=== PATIENT | male | born 1990 | race Caucasian/White ===

== ENCOUNTER 2023-08-11 13:18 | Emergency (ER) | payer BC, SELFPAY ==
--- NOTE | ~2023-08-11 | XR_ITS ---
EXAMINATION: XR shoulder LT min 2V DATE: 08/11/2023 13:36 INDICATION: Left shoulder pain. TECHNIQUE: 5 views of left shoulder were obtained. COMPARISON: None. FINDINGS: Bone alignment is normal. No fracture. There is severe osteoarthritis of glenohumeral joint and mild osteoarthritis of acromioclavicular joint. IMPRESSION: 1. Severe osteoarthritis of glenohumeral joint. Reviewed, dictated and finalized at location A.
[2023-08-11 13:18] VITALS: BP 159/105; PULSE 90; RESP 20; TEMP 36.9; O2SAT 99
[2023-08-11] MEDS: KETOROLAC (*BKC) 60 MG/2 ML VIAL IM (13:37)
--- NOTE | 2023-08-11 14:01 | ED.UPPEXIN ---
HPI - Extremity Injury (Upper) General Chief Complaint: Extremity Injury, Upper Stated Complaint: left shoulder pain Time Seen by Provider: 08/11/23 13:20 Source: patient Mode of arrival: ambulatory Limitations: no limitations History of Present Illness HPI narrative: patient presents with left shoulder pain has had rotator cuff surgery when he was 16 years of age and earlier today had felt some pain and discomfort in his left shoulder with decreased range of motion with no known injuries no numbness or tingling, rates his pain about a 6/10 has a strong brisk radial pulse on the left otherwise decreased range of motion secondary to pain and discomfort. complaint: injury to: left Onset (ago): hour(s) Other Extremity Injury: Left: shoulder ( shoulder pain) Handedness: right Place: home Severity: moderate Severity scale (1-10): 6 Related Data Allergies Allergy/AdvReac Type Severity Reaction Status Date / Time No Known Allergies Allergy Unverified 08/11/23 13:20 Review of Systems Review of Systems: All systems reviewed & are unremarkable except as noted in HPI and below PMFSH Past Medical History Medical History Patient denies medical problems Surgical History Surgical History Status post rotator cuff surgery Exam Const: General: healthy appearing and no acute distress Nutritional Appearance: well nourished Orientation/consciousness: patient oriented x3 Limitations: no limitations Neck: Neck: normal visual inspection and no lymphadenopathy Chest: Chest palpation & inspection: normal inspection of the chest Cardio: Rate: regular rate Rhythm: regular rhythm GI: Auscultation: normal bowel sounds Back/Spine/Pelvis: Back: no CVA tenderness Skin: General skin exam: normal color Rashes: no rashes Wounds: no wounds Neuro: General: patient oriented x3 Extrem: Other: left shoulder pain and tenderness with movement Course Course Emergency Course: patient received a 60mg IM injection of Toradol pain level marginally improved, x-rays revealed no dislocations no acute fractures, will place patient in a sling and advised him to follow with his primary Vital Signs Vital signs: Vital Signs Temperature 36.9 C 08/11/23 13:18 Pulse Rate 90 08/11/23 13:18 Respiratory Rate 20 08/11/23 13:18 Blood Pressure 159/105 H 08/11/23 13:18 Pulse Oximetry 99 08/11/23 13:18 Oxygen Delivery Room Air 08/11/23 13:18 Temperature 36.9 C 08/11/23 13:18 Pulse Rate 90 08/11/23 13:18 Respiratory Rate 20 08/11/23 13:18 Blood Pressure 159/105 H 08/11/23 13:18 Pulse Oximetry 99 08/11/23 13:18 Oxygen Delivery Room Air 08/11/23 13:18 Critical Care Time Critical Care Time Critical Care Time: No Discharge Plan Discharge Clinical Impression: Rotator cuff strain Qualifiers: Encounter type: initial encounter Laterality: left Qualified Code(s): S46.012A - Strain of muscle(s) and tendon(s) of the rotator cuff of left shoulder, initial encounter Patient Disposition: Home, Self-Care Condition: Stable Instructions: Antibiotic Form, Rotator Cuff Injury (ED), How to Use a Sling (ED) Additional Instructions: advised take medicine as prescribed and follow with primary care physician within the next 3 to 4 days for further evaluation treatment. Prescriptions: New tramadol 50 mg tablet 50 mg PO Q6H PRN (Reason: pain) Qty: 14 0RF Follow-up/Referrals: UNKNOWN,DOCTOR [Primary Care Provider] - Time of Disposition: 14:07
== END 2023-08-11 14:13 | disposition home or self-care (01) ==
PROVIDERS: Emergency Provider Emergency Medicine
DX: S46.012A Strain of muscle(s) and tendon(s) of the rotator cuff of left shoulder, initial encounter (principal); X58.XXXA Exposure to other specified factors, initial encounter
CPT/HCPCS: 73030; 96372; 99283; A4565; J1885

== ENCOUNTER 2023-09-03 18:29 | Emergency (ER) | payer BC, SELFPAY ==
[2023-09-03 18:39] VITALS: BP 154/97; PULSE 81; RESP 16; TEMP 36.6; O2SAT 97
--- NOTE | 2023-09-03 18:42 | ED.EYEPROB ---
HPI - Eye Problem General Chief complaint: Eye Problems Stated complaint: left eye Time Seen by Provider: 09/03/23 18:47 Source: patient, RN notes reviewed and old records reviewed Mode of arrival: ambulatory Limitations: no limitations History of Present Illness HPI Narrative: [id number] year old male accompanied by female friend with complaints of redness with irritation and some pain to his left eye since being scratched by a fingernail last evening. Patient reports some increased watering of his eye, denies any sharp pain or any foreign body in eye or any blunt trauma to his left eye. Patient reports no visual disturbance from his left eye. chief complaint: eye redness and other (eye scratched by fingernail) Onset (ago): day(s) (1 last evening) Onset description: sudden Duration: constant Location: left eye Eye Symptoms: redness, pain and other (increased watering) Severity scale (1-10): 7 Related Data Allergies Allergy/AdvReac Type Severity Reaction Status Date / Time No Known Allergies Allergy Unverified 08/11/23 13:20 Review of Systems Review of Systems: CONSTITUTIONAL: Denies fever, chills, or sweats. EYES: Denies visual changes. Reports redness,, irritation, discomfort with increased watering from his left eye, denies any change in vision or sharp pain ENT: Denies rhinorrhea, congestion, sore throat, or otalgia. CARDIOVASCULAR: Denies chest pain, palpitations, or edema. RESPIRATORY: Denies cough or dyspnea. SKIN: Denies rash or itching. NEUROLOGIC: Denies headache All systems reviewed & are unremarkable except as noted in HPI and below PMFSH Past Medical History Medical History Patient denies medical problems Surgical History Surgical History Status post rotator cuff surgery Family History Family History Other Diabetes mellitus Heart disease Social History Social History Gender identity (if verbalized by the patient): Male Comments At time of signature, agree with nursing past medical, surgical, social and family history. There is no relevant family history pertinent to the presenting complaint Exam Narrative: GENERAL: Well-appearing, well-nourished, and in no acute distress. HEAD: Normocephalic, atraumatic. EYES: PERRLA and EOMI. Upper and lower eyelids unremarkable. No periorbital cellulitis noted. Sclera injected, increased eye watering, discomfort to eye from being scratched by fingernail, no visual changes ENT: Nares clear, no rhinorrhea or epistaxis. Mucous membranes moist. NECK: Supple. no lymphadenopathy CHEST: Clear to auscultation. No respiratory distress.SAO2 97% on room air HEART: Regular rate and rhythm. No murmur heard. Normal peripheral pulses. SKIN: Warm, dry, no rash. NEURO: No focal deficits. Alert and oriented x3. Course Course Emergency Course: Patient is aware of diagnosis, understands and agrees to treatment plan. Anticipatory guidance given. Patient agrees to follow-up as directed and is aware of reasons to seek care at the emergency department. Portions of this record may have been created with voice recognition software Level of Care: Express Care Visit Vital Signs Vital signs: Vital Signs Temperature 36.6 C 09/03/23 18:39 Pulse Rate 81 09/03/23 18:39 Respiratory Rate 16 09/03/23 18:39 Blood Pressure 154/97 H 09/03/23 18:39 Pulse Oximetry 97 09/03/23 18:39 Temperature 36.6 C 09/03/23 18:39 Pulse Rate 81 09/03/23 18:39 Respiratory Rate 16 09/03/23 18:39 Blood Pressure 154/97 H 09/03/23 18:39 Pulse Oximetry 97 09/03/23 18:39 Reviewed Procedures FB Removal Eye Foreign Body #1: Foreign Body Removal Date: 09/03/23 Foreign Body Removal Time: 18:52 Time Out performed: Yes
== END 2023-09-03 19:07 | disposition home or self-care (01) ==
PROVIDERS: Emergency Provider Registered Nurse; PCP Internal Medicine
DX: S05.02XA Injury of conjunctiva and corneal abrasion without foreign body, left eye, initial encounter (principal); W50.4XXA Accidental scratch by another person, initial encounter
CPT/HCPCS: 99213; A9270; G0463

== ENCOUNTER 2024-02-24 08:15 | Emergency (ER) | payer BC, SELFPAY ==
[2024-02-24 08:21] VITALS: BP 168/113; PULSE 99; RESP 18; TEMP 36.4; O2SAT 98
[2024-02-24] MEDS: TETRACAINE HCL 0.5% OPHTH SOLN 4 ML BTL 1 DROP EACH EYE (08:25)
--- NOTE | 2024-02-24 08:38 | ED_ITS ---
HPI - Eye Problem General Chief complaint: Eye Problems Stated complaint: METAL IN LEFT EYE Time Seen by Provider: 02/24/24 08:18 Source: patient Mode of arrival: ambulatory Limitations: no limitations History of Present Illness HPI Narrative: Patient is a 34-year-old male with a left eye foreign body sensation since grinding metal prior to arrival. This happened today. He is having discomfort in the left eye and irritation. chief complaint: eye pain ( Left eye), eye redness ( left eye), eye injury ( left eye) and foreign body ( left eye) Onset (ago): hour(s) (1) Onset description: sudden Duration: constant Location: left eye Eye Symptoms: burning, redness, pain and foreign body sensation Place: home Mechanism: direct trauma ( via metal grinding) and occurred while hammering/grinding Severity: mild Severity scale (1-10): 2 If Pain, Quality: aching Associated symptoms: none Treatments Prior to Arrival: none Related Data Patient tetanus UTD: Yes Allergies Allergy/AdvReac Type Severity Reaction Status Date / Time No Known Allergies Allergy Verified 02/24/24 08:48 Review of Systems Review of Systems: All systems reviewed & are unremarkable except as noted in HPI and below Constitutional: Constitutional: Reports no additional constitutional complaints Eyes: Eyes: Reports no additional eye complaints ENT: Reports system reviewed and no additional complaints, except as document ed Cardiovascular: Cardiovascular: Reports no additional cardiovascular complaints Respiratory: Respiratory: Reports no additional respiratory complaints Gastrointestinal: Gastrointestinal: Reports no additional gastrointestinal complaints Genitourinary: Genitourinary: Reports no additional male genitourinary complaints Musculoskeletal: Musculoskeletal: Reports no additional musculoskeletal complaints Integumentary/Breasts: Skin/Breast: Reports system reviewed and no additional complaints, except as docu Neurologic: Reports system reviewed and no additional complaints, except as documented Psychiatric: Psychiatric: Reports no additional psychiatric complaints Endocrine: Endocrine: Reports no additional endocrine complaints Hematologic/Lymphatic: Hematologic/Lymphatic: Reports no additional hematologic/lymphatic complaints Allergic/Immunologic: Allergic/Immunologic: Reports no additional allergic/immunologic complaints PMFSH Past Medical History Medical History Patient denies medical problems Surgical History Surgical History Status post rotator cuff surgery Family History Family History Other Diabetes mellitus Heart disease Social History Social History Gender identity (if verbalized by the patient): Male Exam Const: General: healthy appearing Nutritional Appearance: well nourished Orientation/consciousness: patient oriented x3 HENMT: Head: normal to inspection Ears: external ears normal Face/Nose/Sinus: Normal external nose present Eyes: Conjunctivae: abnormal conjunctivae and conjunctival abnormality Pupils: Equal, round and reactive pupils present EOM: EOMs intact bilaterally Direct Ophthalmoscopy: photophobia Other: left eye conjunctiva is red and a foreign body at the 9 o'clock position of the cornea present with metal Neck: Neck: normal visual inspection Chest: Chest palpation & inspection: normal inspection of the chest Resp: Effort & Inspection: normal respiratory effort and not labored Auscultation: clear to auscultation bilaterally and no crackles Cardio: Rate: regular rate Rhythm: regular rhythm Heart sounds: no murmurs GI: Inspection: non-distended Auscultation: normal bowel sounds and bowel sounds present : General: Yes bladder normal to palpation Back/Spine/Pelvis: Back: no CVA tenderness Skin: General skin exam: normal color Rashes: no rashes Wounds: no wounds Neuro: General: patient oriented x3 Cranial nerves: Yes Nystagmus not present Speech: normal speech Extrem: General: normal to inspection Psych: Mental Status: mental status grossly normal Affect: normal affect Attitude: cooperative Course Vital Signs Vital signs: Vital Signs Oxygen Delivery Room Air 02/24/24 08:15 Temperature 36.4 C 02/24/24 08:21 Pulse Rate 99 02/24/24 08:21 Respiratory Rate 18 02/24/24 08:21 Blood Pressure 168/113 H 02/24/24 08:21 Pulse Oximetry 98 02/24/24 08:21 Oxygen Delivery Room Air 02/24/24 08:21 Procedures Other Procedure Procedure 1: Other Procedure: Left eye foreign body: Anesthetized with tetracaine, 18 gauge needle used to remove foreign body metal, cotton stick used to remove the metal out of the eye in total, no complications, patient tolerated procedure well and no residual foreign body or infections, area felt much relief after removal foreign body MDM - Eye Problem MDM Narrative Medical decision making narrative: patient is a 34-year-old male with a left eye foreign body metal after grinding to the cornea. We will remove the piece of foreign body and give him Maxitrol eyedrops. Blood pressure is noted to be elevated and he will need to address with the primary doctor. He is very anxious at this time. Discharge Plan Discharge Clinical Impression: Eye foreign body Qualifiers: Encounter type: initial encounter Laterality: left Qualified Code(s): T15.92XA - Foreign body on external eye, part unspecified, left eye, initial encounter Patient Disposition: Home, Self-Care Condition: Stable Instructions: Antibiotic Form, Eye Foreign Body (ED) Prescriptions: New neomycin-polymyxin B-dexameth [Maxitrol] 3.5mg/mL-10,000 unit/mL-0.1 % drops,suspension 2 drp LEFT EYE TID 7 Days Qty: 5 0RF Follow-up/Referrals: UNKNOWN,DOCTOR [Primary Care Provider] - Time of Disposition: 09:08
--- NOTE | 2024-02-24 08:46 | PC.NURSE ---
PT REPORTS HE RECEIVED A TETANUS VACCINATION WHILE INCARCERATED AND IS UP TO DATE.
--- NOTE | 2024-02-24 09:07 | PC.NURSE ---
ERP REMOVED A PIECE OF METAL WITHOUT DIFFICULTY
[2024-02-24 09:08] VITALS: BP 154/98; PULSE 90; RESP 18; O2SAT 98
== END 2024-02-24 09:08 | disposition home or self-care (01) ==
LOC: CHSED 08:54
PROVIDERS: Emergency Provider Emergency Medicine
DX: T15.82XA Foreign body in other and multiple parts of external eye, left eye, initial encounter (principal); W44.D0XA Magnetic metal object unspecified, entering into or through a natural orifice, initial encounter
CPT/HCPCS: 65220; 99283